=== PATIENT | male | born 1960 | race Caucasian/White ===

== ENCOUNTER 2017-01-08 14:06 | Emergency (ER) | payer BC ==
[~2017-01-08] VITALS: Ht 182.9 cm; Wt 97.5 kg
[~2017-01-08 14:06] MED LIST: ATORVASTATIN CA40 MG PO; FENOFIBRATE145 MG PO; GLIMEPIRIDE 4MG4 MG PO; METFORMIN850 MG PO; NORCO 325 MG-51 TAB PO; OMEPRAZOLE20 MG PO; PIOGLITAZONE HY30 MG PO; PREDNISONE 20MG20 MG PO
[2017-01-08] MEDS ORDERED: JANUVIA100 MG PO (14:23)
[2017-01-08] MEDS ORDERED: HYDROCHLOROTHIA1 TAB PO (14:24)
[2017-01-08] MEDS ORDERED: CRESTOR10 MG PO (14:25)
[2017-01-08] MEDS ORDERED: DICLOFENAC SODI75 M2 PO (14:27)
[2017-01-08 14:48] LABS: HEMOGLOBIN 13.7 g/dL (14.1-18.0); LYMPH # 1.2 K/mm3 (0.7-4.5); LYMPH % 7.8 % (10-50)
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
[2017-01-08 14:53] LABS: BUN 26 mg/dL (7-18)
[2017-01-08 14:54] LABS: GFR (ESTIMATED) 57 ML/MIN (>60)
[2017-01-08 15:01] LABS: NEUTROPHILS 82 % (42-76)
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
[2017-01-08 15:14] VITALS: BP 126/75
[2017-01-08] MEDS ORDERED: NORCO 325 MG-51 TAB PO (15:14)
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
== END 2017-01-08 15:21 | disposition home or self-care (01) ==
LOC: ER 14:06
PROVIDERS: Emergency Medicine
DX: S20.211A Contusion of right front wall of thorax, initial encounter (principal); S83.92XA Sprain of unspecified site of left knee, initial encounter; E11.8 Type 2 diabetes mellitus with unspecified complications; I10 Essential (primary) hypertension; K21.9 Gastro-esophageal reflux disease without esophagitis; W55.22XA Struck by cow, initial encounter; Y92.73 Farm field as the place of occurrence of the external cause